=== PATIENT | male | born 1970 | race Caucasian/White ===

== ENCOUNTER 2017-07-14 14:46 | Emergency (ER) | payer OTHER ==
[2017-07-14 14:54] VITALS: BP 114/78; PULSE 76; TEMP 98; BMI 31.6
--- NOTE | 2017-07-14 14:54 | PDOC ---
Rapid Medical Evaluation Time Seen by Provider: 07/14/17 14:47 Medical Evaluation: Allergies Allergy/AdvReac Type Severity Reaction Status Date / Time No Known Allergies Allergy Verified 07/14/17 14:47 I have performed a brief in-person evaluation of this patient. The patient presents with a chief complaint of: anterior chest pain x 2 days. worse with movement. states he was stretching a few days ago and felt a snap. has taken 800mg of ibuprofen which helps. no recent travel. Denies smoking and drug use. No cough, hemoptysis, recent travel. Pertinent physical exam findings: reproducible right anterior chest wall pain with palpation I have ordered the following: ekg The patient will proceed to the ED for further evaluation. Discharge Disposition - Diagnosis Chest wall pain - Referrals - Patient Instructions - Post Discharge Activity
--- NOTE | 2017-07-14 17:05 | PDOC ---
History of Present Illness - General Chief Complaint: Chest Pain Stated Complaint: CHEST PAIN Time Seen by Provider: 07/14/17 14:47 History Source: Patient Exam Limitations: No Limitations - History of Present Illness Initial Comments: 07/14/17 18:04 Patient is a 47-year-old male past medical history of HLD, who presents to the emergency department today complaining of right-sided chest pain after running in the park while playing with his nephews. Patient made a sudden movement heard a snapping sound in his chest.Patient states that it hurts to touch his right chest due to pain. He states that the pain is also worse with movement. He has taken ibuprofen with relief of his symptoms. Denies lightheadedness, dizziness, fevers, chills, palpitations, edema, shortness of breath, difficulty breathing, nausea, vomiting and diarrhea. Past History - Travel Traveled outside of the country in the last 30 days: No Close contact w/someone who was outside of country & ill: No - Past Medical History Allergies/Adverse Reactions: Allergies Allergy/AdvReac Type Severity Reaction Status Date / Time No Known Allergies Allergy Verified 07/14/17 14:47 Home Medications: Ambulatory Orders Cyclobenzaprine HCl [Flexeril -] 10 mg PO HS #10 tablet 07/14/17 COPD: No Hypercholesterolemia: Yes - Suicide/Smoking/Psychosocial Hx Smoking History: Current some day smoker Number of Cigarettes Smoked Daily: 4 Information on smoking cessation initiated: No 'Breaking Loose' booklet given: 01/02/16 Hx Alcohol Use: Yes (OCCASIONAL) Drug/Substance Use Hx: No Substance Use Type: None Review of Systems - Review of Systems Able to Perform ROS?: Yes Comments:: 07/14/17 18:06 CONSTITUTIONAL: Absent: fever, chills, diaphoresis, generalized weakness, malaise, loss of appetite HEENT: Absent: rhinorrhea, nasal congestion, throat pain, throat swelling, difficulty swallowing, mouth swelling, ear pain, eye pain, visual Changes CARDIOVASCULAR: Present: chest pain Absent: chest pain, loss of consciousness, palpitations, irregular heart rate, peripheral edema RESPIRATORY: Absent: cough, shortness of breath, dyspnea with exertion, orthopnea, wheezing, stridor, hemoptysis SKIN: Absent: rash, itching, pallor NEUROLOGIC: Absent: headache, focal weakness or paresthesias, dizziness, unsteady gait, seizure, mental status changes, bladder or bowel incontinence Is the patient limited Sinhala proficient: No *Physical Exam - Vital Signs Last Vital Signs Temp Pulse Resp BP Pulse Ox 98.0 F 76 18 114/78 100 07/14/17 14:49 07/14/17 14:49 07/14/17 14:49 07/14/17 14:49 07/14/17 14:49 - Physical Exam Comments: 07/14/17 18:06 GENERAL: Well developed, well nourished. Awake and alert. No acute distress. NECK: Supple. Full ROM. No JVD. Carotid pulses 2+ and symmetric, without bruits. No thyromegaly. No lymphadenopathy. CARDIOVASCULAR: Regular rate and rhythm. No murmurs, rubs, or gallops. Distal pulses are 2+ and symmetric. PULMONARY: No evidence of respiratory distress. Lungs clear to auscultation bilaterally. No wheezing, rales or rhonchi. ABDOMINAL: Soft. Non-tender. Non-distended. No rebound or guarding. No organomegaly. Normoactive bowel sounds. MUSCULOSKELETAL TTP of right chest wall, pectoral muscles. Pain worse with extension of pectoral muscles. Normal range of motion at all joints. No bony deformities or tenderness. No CVA tenderness. EXTREMITIES: No cyanosis. No clubbing. No edema. No calf tenderness. SKIN: Warm and dry. Normal capillary refill. No rashes. No jaundice. NEUROLOGICAL: Alert, awake, appropriate. Cranial nerves 2-12 intact. No deficits to light touch and temperature in face, upper extremities and lower extremities. No motor deficits in the in face, upper extremities and lower extremities. Normoreflexic in the upper and lower extremities. Normal speech. Toes are down- going bilaterally. Gait is normal without ataxia. PSYCHIATRIC: Cooperative. Good eye contact. Appropriate mood and affect. Medical Decision Making - Medical Decision Making 07/14/17 18:08 EKG: Rate 72 bpm, normal sinus rhythm. Normal intervals, normal axis. No acute ST-T wave changes. Patient is a 47-year-old male past medical history of HLD, who presents to the emergency department today complaining of right-sided chest pain after running in the park. Patient heard a snapping sound. Patient with point tenderness over the right pectoral muscle. Tylenol given with relief. X-rays negative for any fractures, pneumonia. We'll discharge home at this time as a muscle strain. Return precautions given. Patient understands all discharge instructions and all questions were answered. *DC/Admit/Observation/Transfer Diagnosis at time of Disposition: Chest wall pain - Discharge Dispostion Disposition: HOME Condition at time of disposition: Stable Admit: No - Prescriptions Prescriptions: Cyclobenzaprine HCl [Flexeril -] 10 mg PO HS #10 tablet - Referrals Referrals: Bryce Nicolas MD [Primary Care Provider] - - Patient Instructions Printed Discharge Instructions: DI for Atypical Chest Pain Additional Instructions: Your EKG and chest x-ray were normal today. You most likely have a muscle strain in her pectoral muscles. Please take Motrin 800 mg every 8 hours as needed for pain. You may take Flexeril at night to help with the spasm. Do not drive after taking this medication as it may make you sleepy. You may use icy hot to the area to help with pain. Please follow up with her primary care doctor Return to the emergency department if you have worsening pain, shortness of breath, difficulty breathing, or have any changes in your symptoms. - Post Discharge Activity Forms/Work/School Notes: Back to Work
[2017-07-14] MEDS ORDERED: ACETAMINOPHEN 325 MG TABLET (FP) PO ONE (17:28)
--- NOTE | 2017-07-16 10:37 | EKG ---
Test Reason : Blood Pressure : / mmHG Vent. Rate : 072 BPM Atrial Rate : 072 BPM P-R Int : 176 ms QRS Dur : 098 ms QT Int : 396 ms P-R-T Axes : 057 050 049 degrees QTc Int : 433 ms NORMAL SINUS RHYTHM NORMAL ECG WHEN COMPARED WITH ECG OF 02-JAN-2016 16:54, NO SIGNIFICANT CHANGE WAS FOUND Confirmed by MILLICENT APARICIO MD ([id number]) on 07/16/2017 10:36:46 AM Referred By: Confirmed By:MILLICENT APARICIO MD
== END 2017-07-14 17:42 | disposition home or self-care (01) ==
LOC: JERFT 14:46
DX: S29.011A Strain of muscle and tendon of front wall of thorax, initial encounter (principal); Y93.02 Activity, running; Y93.89 Activity, other specified; Y92.830 Public park as the place of occurrence of the external cause; Y99.8 Other external cause status
CPT/HCPCS: 71046-TC-FY; 93005; 93010; 99281-25

== ENCOUNTER 2018-10-07 08:00 | Inpatient (IN) | payer OTHER ==
[2018-10-06 17:52] VITALS: BMI 30.3
[2018-10-07] MEDS ORDERED: MIDAZOLAM HCL 2 MG/2 ML SINGLE DOSE VIAL ONE ×2 (09:23)
[2018-10-07] MEDS ORDERED: LACTATED RINGERS SOLUTION 1,000 ML IV SCH (09:30)
--- NOTE | 2018-10-07 09:31 | HP ---
Satellite H - Chief Complaint Chief Complaint: right shoulder pain - Past Medical History Allergies/Adverse Reactions: Allergies Allergy/AdvReac Type Severity Reaction Status Date / Time No Known Allergies Allergy Verified 10/07/18 09:30 - Current Medications Current Medications: Home Medications Medication Instructions Recorded Salmeterol/Fluticasone [Advair 1 inh PO PRN 10/06/18 100Mcg/50Mcg -] Simvastatin [Zocor -] 40 mg PO HS 10/06/18 oxyCODONE SR [Oxycontin] 10 mg PO PRN 10/06/18 Oxycodone HCl/Acetaminophen 1 - 2 tab PO Q6H #30 tab MDD 6 10/07/18 [Percocet 5-325 mg Tablet] Satellite Physical Exam - Physical Examination Vital Signs: Vital Signs Period Temp Pulse Resp BP Sys/Recio Pulse Ox Last 24 Hr 98.2 F 62 20 120/67 99 General Appearance: Well Nourished, Well Developed, Alert & Oriented x3 ENT: Clear Lung: Normal air movement Heart: Regular rate & rhythm Extremities: Other (right shoulder- + ttp, decr rom, + empty can, nvi, xrays show GH OA, high riding humerus) Neurological: Intact, Alert, Oriented Satellite Impression/Plan - Impression/Plan Impression: right shoulder chronic RC arthropathy, OA Operative Procedure: right reverse TSA Date to be Performed: 10/07/18
[2018-10-07] MEDS ORDERED: PROPOFOL 20 ML ONE (10:37)
[2018-10-07] MEDS ORDERED: DEXAMETHASONE SOD PHOSPHATE 4 MG/1 ML VIAL ONE (10:37)
[2018-10-07] MEDS ORDERED: LIDOCAINE HCL/PF 2% SDV 5ML VIAL ONE (10:37)
[2018-10-07] MEDS ORDERED: KETOROLAC TROMETHAMINE 30 MG/1 ML VIAL ONE (10:37)
[2018-10-07] MEDS ORDERED: DEXMEDETOMIDINE HCL 200 MCG/2 ML IVPB ONE (10:40)
[2018-10-07] MEDS ORDERED: ROCURONIUM BROMIDE 50 MG/5 ML SYRINGE ONE (10:43)
[2018-10-07] MEDS ORDERED: ceFAZolin SODIUM 1 GM VIAL IVPB ONE (11:13)
[2018-10-07] MEDS ORDERED: EPHEDRINE SULFATE/0.9% NACL/PF 50 MG/10 ML SYRINGE NR ONE (11:15)
[2018-10-07] MEDS ORDERED: KETAMINE HCL 200 MG/20 ML VIAL ONE (11:26)
[2018-10-07] MEDS ORDERED: NEOSTIGMINE METHYLSULFATE 0.5 MG/ML - 10 ML MDV ONE (13:22)
[2018-10-07] MEDS ORDERED: GLYCOPYRROLATE 0.2 MG/1 ML VIAL ONE (13:23)
--- NOTE | 2018-10-07 13:41 | OP ---
Operative Note - Note: Operative Date: 10/07/18 ([facility]) Pre-Operative Diagnosis: right shoulder rc arthropathy, OA Operation: right reverse TSA Post-Operative Diagnosis: Same as Pre-op Surgeon: Ryan Watkins Aluminum Siding Installer: Rinku Daly Anesthesiologist/CRUSHER FEEDER: Cheo Mariano Anesthesia: General, Local Specimens Removed: humeral head Operative Report Dictated: Yes
[2018-10-07] MEDS ORDERED: ONDANSETRON 4 MG/2 ML VIAL ONE (14:01)
[2018-10-07] MEDS ORDERED: ACETAMINOPHEN INJECTION 100 ML IVPB ONE (14:52)
[2018-10-07] MEDS ORDERED: ONDANSETRON 4 MG/2 ML VIAL IVPUSH PRN (16:49)
[2018-10-07] MEDS ORDERED: oxyCODONE HCL 5 MG TABLET PO PRN (16:49)
[2018-10-07] MEDS: CEFAZOLIN 2 GM/D5W 2 GM/50 ML ML IVPB SCH (20:10)
[2018-10-07] MEDS ORDERED: ATORVASTATIN CA 20 MG TABLET (FP) PO SCH (22:00)
--- NOTE | 2018-10-07 22:50 | SPEC ---
DATE OF OPERATION: 10/07/2018 PREOPERATIVE DIAGNOSIS: Right shoulder glenohumeral osteoarthritis. POSTOPERATIVE DIAGNOSIS: Right shoulder glenohumeral osteoarthritis. PROCEDURE: Right shoulder reverse total shoulder replacement. SURGEON: Naila Mon MD DIRECTOR MANUFACTURING ENGINEERING: ALVERTO Olvera SUPERVISOR CD AREA: Cheo Mariano CRNA and WAYLON Carbajal ANESTHESIA: Right long-acting interscalene block and LMA anesthesia. DRAINS: None. COMPLICATIONS: None. SPECIMEN: Right humeral head. BLOOD LOSS: 250 mL. BLOOD GIVEN: None. FLUID REPLACEMENT: 1500 mL Plasmalyte. INDICATIONS: This patient is a 48-year-old male with a preoperative diagnosis of right shoulder severe glenohumeral osteoarthritis. After extensive preoperative discussions, he understands the potential risks, complications, alternatives, and benefits of surgery versus nonsurgical treatment. He understands we are going to do a shoulder replacement. We are going to replace his natural anatomy with metal and plastic prosthesis. He understands he will not have full range of motion and he will have some dysfunction in some way and different patients surgical results are different. He understands this. All questions and concerns were addressed, and we proceeded with surgery. DESCRIPTION OF PROCEDURE: A right long-acting interscalene block was performed. LMA anesthesia was induced. She was placed into the beach-chair position with ample padding throughout. The right upper extremity was prepped and draped in a sterile fashion. A deltopectoral approach incision was marked out using the coracoid and mid aspect of the proximal humerus as landmarks. The incision was made with the No. 15 scalpel blade. Subcutaneous hemostasis was achieved with a Bovie cautery. Dissection was done through the superficial fascia. Blunt dissection was done with my finger in the deltopectoral interval. The cephalic vein was retracted medially. The Gelpi self-retaining retractors were placed into the wound. I found the conjoined tendon off the coracoid and used the Bovie to incise lateral to it. I was then able to cut down to bone and preserve the medial and lateral capsular flaps. The rotator cuff subscapularis was very deficient. I then peeled the soft tissues, including the anterior aspect of the deltoid insertion off the humerus. The biceps tendon was seen to be frayed, degenerated out of its groove, and therefore I did a biceps tenolysis. Appropriate Fukuda and pickle-fork retractors were placed into the wound, exposing the proximal humerus. I was able to easily dislocate it anteriorly. It was extremely arthritic. Next, using the external guide and a broach, I used the oscillating saw to do a cut at the articular margin. Osteophytes were removed with the rongeur. Some soft tissue was removed with the Bovie. I was able to expose the proximal humerus quite well. Next, using the standard technique, using the [employer] Reverse Total Shoulder Replacement System, we used first the starting awl and then the sequential hand broaches until we had cortical chatter. Then we used the humeral stem-shape broaches and mallet. We eventually seated a 16-size stem that had excellent cortical contact and was very stable throughout. We did not need to use the calcar reamer as the humeral cut was at the right angle. Next, our attention was turned to the glenoid. The Bovie was used to remove soft tissue, including some capsular attachments and the labrum. Retractors were placed into the wound to retract the humerus and expose the glenoid. With excellent direct visualization, we then put on the glenoid glenosphere, lining it up appropriately and put in the 3.2-mm guidewire. We went through 2 cortices. We then used the guidewire to do the glenoid reamer. We were able to ream the glenoid until we got bleeding subchondral bone. More bone was taken inferiorly than superiorly, but it was concentric. The guidewire was then removed, and we put on the actual 28-mm glenoid baseplate, held it in place with a 28-mm central screw. Then using the typical standard technique, we put in superior, inferior, and posterior screws, which were 28, 28, and 16 mm in length, respectively. We had excellent compression of the glenoid baseplate against the glenoid and overall concentric fit. Next, we put on a 36-mm glenosphere. This was the actual implant, impacted in place, and it was quite stable. Next, our attention was turned to the humerus. We cleaned up the humeral shaft, put in an actual size-16 humeral press-fit porous-coated stem and used the mallet to put it down to the appropriate level. We then trialed the size of the humeral glenosphere, and it ended up being a 36-mm implant. It was extremely stable. In fact, it was very difficult to dislocate. Next, this trial was removed, and the actual 36-mm humeral glenosphere was placed on, it was reduced, and was extremely stable throughout. The area was copiously irrigated and washed out. The capsule was closed with multiple horizontal mattress No. 1 Ti-Cron sutures. The area was copiously irrigated and washed out. The deep fascial layer of the deltoid closed with 0 Vicryl suture. The axillary nerve was directly visualized and seen to be intact at the end of the case. Care was taken to try to protect it and not stretch it during the case. Superficial deltoid fascia closure was done with 0 Vicryl suture. Deep dermal layer closed with a 2-0 Vicryl suture. Final skin reapproximation done with a running subcutaneous V-Loc 90, and SwiftSet glue was used on the skin. The area was then washed and dried. It was covered with an Aquacel dressing, was placed into a regular sling. The patient was extubated. There was total blood loss of 250 mL. There were no complications during the case. The shoulder immobilizer was placed in the operating room, and he was brought to the regular recovery room in stable condition. He will be admitted and spend 1 night in the hospital. Total operative time is 1 hour and 40 minutes. The size of the prosthesis was a size 16 humeral stem, 4-mm polyethylene, 4-mm build-up baseplate on the humerus, 40-mm glenoid hemisphere, and 6-mm glenoid hemisphere offset. NAILA MON M.D. [id number]
[2018-10-07] MEDS: FLUTICASONE/SALMETEROL 100 MCG/50 MCG DISKUS IH SCH (22:56)
[2018-10-08] MEDS: CEFAZOLIN 2 GM/D5W 2 GM/50 ML ML IVPB SCH (04:18)
[2018-10-08] MEDS ORDERED: oxyCODONE HCL 5 MG TABLET PO ONE (09:00)
--- NOTE | 2018-10-08 09:07 | PN ---
Progress Note (short form) - Note Progress Note: Ortho Pt seen and examined s/p right reverse TSA pod #1 Selected Entries 10/08/18 06:37 Temperature 98.4 F Pulse Rate 76 Respiratory 20 Rate Blood Pressure 138/92 dressing c/d/i, calf soft, nt nvi a/p maintain sling PT for ROM pain control d/c home today f/u in the office in 1 week
--- NOTE | 2018-10-08 09:08 | DS ---
Physical Examination Vital Signs: Vital Signs Temperature 98.4 F 10/08/18 06:37 Pulse Rate 76 10/08/18 06:37 Respiratory Rate 20 10/08/18 06:37 Blood Pressure 138/92 10/08/18 06:37 O2 Sat by Pulse Oximetry (%) 98 10/07/18 21:00 Discharge Summary Reason For Visit: OSTEOARTHRITIS Procedures: Principal: right reverse TSA Hospital Course: admitted for elective right reverse TSA, uneventful post-op, stable for d/c Condition: Good - Instructions Diet, Activity, Other Instructions: Post -op Instruction Sheet - Shoulder Surgery - Sling/Immobilizer : You have been placed in a sling or shoulder immobilizer. As long as you are wearing this, your shoulder is well protected. You may come out of the sling to dress , or do exercises as directed. You may bend and straighten the elbow, and move your wrist and fingers, but DO NOT use your own muscles to move your elbow away from your side until directed to do so. Please sleep with the sling on. You may find it more comfortable to sleep with a small pillow behind your elbow, or in a recliner. To wash your armpit, you may lean slightly forward and let your arm dangle slightly away from your side and wash with a washcloth. - Use an ice bag/pack on the shoulder for 15 minutes every 2 hours. - Pain medication was sent to your Pharmacy. - Keep your dressing clean and dry. Please call the office to make an appointment for 1 week after surgery. Your dressing will be removed at that time. - No Lifting. - Starting 1-2 days after surgery, you may take your arm out of the sling 3 times a day to bend and straighten your elbow and wrist to prevent stiffness. - Please call the office at [phone] if there are any questions or concerns. Referrals: Ryan Watkins MD [Staff Physician] - Disposition: HOME - Home Medications Comprehensive Discharge Medication List: Ambulatory Orders RX: Salmeterol/Fluticasone [Advair 100Mcg/50Mcg -] 1 inh PO PRN 10/06/18 RX: Simvastatin [Zocor -] 40 mg PO HS 10/06/18 RX: oxyCODONE SR [Oxycontin] 10 mg PO PRN 10/06/18 Oxycodone HCl/Acetaminophen [Percocet 5-325 mg Tablet] 1 - 2 tab PO Q6H #30 tab MDD 6 10/07/18
[2018-10-08] MEDS: FLUTICASONE/SALMETEROL 100 MCG/50 MCG DISKUS IH SCH (10:13)
[2018-10-08 11:31] VITALS: BP 135/71; PULSE 83; TEMP 98.9
--- NOTE | 2018-10-13 11:58 | PATH ---
Surgical Pathology Report Patient Name: NATO PERALES Med. Rec. #: [id number] /Age/Gender: 1970 (Age: 48) / M Account: [id number] Location: [facility] MED/SURG Taken: 10/07/2018 Received: 10/08/2018 Reported: 10/13/2018 Physicians: Ryan Watkins M.D. Specimen(s) Received RIGHT HUMERAL HEAD Clinical History Right shoulder osteoarthritis Final Diagnosis HUMERAL HEAD, RIGHT, TOTAL SHOULDER REPLACEMENT: PORTION OF HUMERUS SHOWING DEGENERATIVE CHANGES. Electronically Signed Tessy Garcia M.D. Gross Description Received in formalin labeled "humeral head right," is a 6.5 x 5.7 x 3.0 cm portion of bone, consistent with a portion of humeral head. The articular surface displays a 3.0 cm in greatest dimension area of eburnation. The remaining articular surface is grimes-brown and diffusely granular. The underlying trabecular bone is yellow and hard. A automobile sales representative section is submitted in one cassette, following decalcification. 10/09/2018 [facility]10/09/2018
== END 2018-10-08 12:22 | disposition home or self-care (01) | DRG 483 ==
LOC: EDSTATUS 08:00 → JSAMEDAYSX 08:52 → J8W 18:25
PROVIDERS: ADMIT Orthopaedic Surgery; ATTEND Orthopaedic Surgery
PROC: 0RRJ00Z Replacement of Right Shoulder Joint with Reverse Ball and Socket Synthetic Substitute, Open Approach (ICD-10-PCS; principal; 2018-10-07 10:00)
DX: M19.011 Primary osteoarthritis, right shoulder (principal); E78.5 Hyperlipidemia, unspecified
CPT/HCPCS: 73030-TC-RT-FY; 88304-TC; 88311-TC; 94760; 97116-GP; 97161-GP; J0131